=== PATIENT | male | born 1955 | race Caucasian/White ===

== ENCOUNTER → 2017-08-20 | Outpatient (CLI) | payer OTHER, SELFPAY ==
[~2017-08-20] VITALS: Ht 167.6 cm; Wt 108.9 kg
[~2017-08-20] MED LIST: AMLODIPINE BESY10 MG PO; COREG25 MG PO; ELIQUIS5 MG PO; UNICOMPLEX M TA1 TA1 PO; VITAMINC500 PO
[2017-08-20 11:06] VITALS: BP 121/84
[2017-08-20 13:24] VITALS: BP 127/88
[2017-08-20 13:51] VITALS: BP 128/84
[2017-08-20 14:03] VITALS: BP 123/85
--- NOTE | 2017-08-27 08:31 | OP ---
[facility] [address] [place] [address] OPERATIVE REPORT Name: TERENCE PALACIOS [id number] Admission: 08/20/17 Attend Phys: Gertrudis Rizzo Discharge: Date of : 55 Report #: [id number] THIS REPORT FOR: //name// CC: Isaac Harper DATE OF SERVICE: 08/20/2017 PREOPERATIVE DIAGNOSES: History of deep venous thrombosis, need for temporary inferior vena cava filter retrieval. POSTOPERATIVE DIAGNOSES: History of deep venous thrombosis, need for temporary inferior vena cava filter retrieval, abdominal aortic aneurysm. ANESTHESIA: Moderate sedation and local anesthetic. ESTIMATED BLOOD LOSS: Minimal. SPECIMEN: IVC filter intact and discarded. COMPLICATIONS: None. CONDITION: Stable. DISPOSITION: Home. PROCEDURE: 1. Ultrasound-guided access, right internal jugular vein. 2. Inferior venacavogram. 3. Retrieval of IVC filter (Bard Pat). INDICATIONS FOR THE PROCEDURE AND CONSENT: The patient is a 61-year-old male who has not smoked, who presented with history of DVT and limb loss. The patient was being consented for IVC filter retrieval as it had been approximately 6 months since the patient had it placed. Risks and benefits of this were discussed with the patient. The patient wished to proceed with removal. The patient was consented and scheduled. PROCEDURE IN DETAIL: After timeout was performed, the patient was placed in supine position with sterile prep and drape of the anterior neck and chest wall. Ultrasound was utilized to identify the right internal jugular vein and Seldinger technique used to place 6-[place] sheath. Glidewire Advantage and UF catheter were advanced into the infrarenal vein beyond the visualized IVC filter. Venogram was performed, which demonstrated the IVC filter to be upright and inappropriate for retrieval. The 6-[place] sheath was removed and the Bard retrieval kit was opened and the 11-[place] retrieval [place] [address] OPERATIVE REPORT Name: TERENCE PALACIOS Room: [facility]#: [id number] Admission: 08/20/17 Attend Phys: Gertrudis Rizzo Discharge: Date of : 55 Report #: [id number] wire above the IVC filter and wire was removed and the end snare catheter advanced through the sheath above the filter in the hook and snared without difficulty under fluoroscopic guidance. The inner sheath and outer sheath were then advanced over the cone of the hook. The filter was clamped and retrieved through the inner sheath on to the backtable. It was then inspected and noted to be intact with all prongs visible. It was then discarded. Sheath was then used to perform a venogram, which demonstrated no extravasation of contrast or concern. Sheath was then removed and pressure was held for hemostasis. The patient tolerated the procedure well. All lap, needle and instrument counts were correct. <ELECTRONICALLY SIGNED> By: Marko Harper DO 08/27/17 [id number] Harper DO /mary
== END | disposition home or self-care (01) ==
LOC: M.INT 10:44
DX: Z45.2 Encounter for adjustment and management of vascular access device (principal)